=== PATIENT | female | born 1935 | race Caucasian/White ===

== ENCOUNTER 2018-05-02 17:49 | Emergency (ER) | payer OTHER, MEDICAID ==
[~2018-05-02] VITALS: Ht 152.4 cm; Wt 54.4 kg
[2018-05-02 17:57] VITALS: BP_SYST 155
--- NOTE | 2018-05-02 17:57 | NUR ---
Patient placed in bed 6 here for back pain while walking tonight, denies any fall or trauma, rates 06/01. Endorsed care to Mark RAMIREZ.
--- NOTE | 2018-05-02 18:00 | NUR ---
PATIENT BIB AMBULANCE. PATIENT SITTING UP ON BED. RESPIRATIONS EVEN AND UNLABORED. DENIES OF ANY CHEST PAIN. NO SOB. PT WITH C/O SHARP LOWER BACK PAIN AT 5PM WHILE WALKING. PAIN WAS 10/10 AT TIME OF INCIDENT, BUT NOW 1/10. TOLERABLE VERBALIZED. PT STATES, "I HAVE AN APPOINTMENT WITH MY DOCTOR TOMORROW." DENIES OF ANY RECENT TRAUMA OR INJURY. PT WITH Hx OF CHRONIC LOWER BACK PAIN. REST, RELAXATION, AND DEEP BREATHING ENCOURAGED. MD AWARE OF PT CONDITION. WILL CONTINUE TO MONITOR.
--- NOTE | 2018-05-02 18:25 | NUR ---
ER Dr. GUILLAUME at bedside examining patient.
--- NOTE | 2018-05-02 18:36 | NUR ---
Patient up and walking on own MD Bran made aware, condition stable.
[2018-05-02 18:45] VITALS: BP_SYST 161
--- NOTE | 2018-05-02 18:45 | NUR ---
Patient AND PT'S DAUGHTER given written and verbal discharge instructions and verbalizes understanding. ER MD discussed with patient the results and treatment provided. Patient in stable condition. ID arm band removed. NO Rx given. Patient educated on pain management and to follow up with PMD. Pain Scale 0/10. Opportunity for questions provided and answered. Medication side effect fact sheet provided. PATIENT IN GOOD CONDITION. NOTED WITH STEADY GAIT.
== END 2018-05-02 18:45 | disposition home or self-care (01) ==
LOC: SED 17:49
DX: G89.29 Other chronic pain (principal); M54.9 Dorsalgia, unspecified; R03.0 Elevated blood-pressure reading, without diagnosis of hypertension
CPT/HCPCS: 99283

== ENCOUNTER 2019-02-07 17:57 | Inpatient (IN) | payer OTHER, MEDICAID ==
[~2019-02-07] VITALS: Ht 152.4 cm; Wt 54.9 kg
[2019-02-07 18:00] VITALS: BP_SYST 187
[2019-02-07] MEDS ORDERED: traMADol HCL HCL 50 MG TABLET (ULTRAM) PO ONE (18:15)
[2019-02-07] MEDS ORDERED: INSULIN REGULAR, HUMAN 100 UNITS/ML, 10 ML VIAL (humuLIN R) SUBCUT PRN (19:45)
[2019-02-07 19:52] LABS: BASOPHILS # (AUTO) 0.1 K/uL (0.0-0.2); BASOPHILS % (AUTO) 0.6 % (0.0-2.0); EOSINOPHILS % (AUTO) 0.1 % (0.0-4.0); HEMATOCRIT 40.7 % (36-48); HEMOGLOBIN 13.9 g/dL (12.0-16.0); LYMPHOCYTES # (AUTO) 1.2 K/uL (1.0-5.5); LYMPHOCYTES % (AUTO) 13.3 % (20.5-51.5); MEAN CORPUSCULAR HEMOGLOBIN 30 pg (27-31); MEAN CORPUSCULAR HGB CONC 34 % (32-36); MEAN CORPUSCULAR VOLUME 87 fL (79.0-98.0); MONOCYTES # (AUTO) 0.3 K/uL (0.0-1.0); NEUTROPHILS # (AUTO) 7.2 K/uL (1.8-7.7); PLATELET COUNT (AUTO) 166 K/uL (130-430); RED BLOOD CELL COUNT(AUTO) 4.68 MIL/uL (4.2-6.2); RED CELL DISTRIBUTION WIDTH 13.4 % (9.0-15.0); WHITE BLOOD COUNT (AUTO) 8.7 K/uL (4.8-10.8)
[2019-02-07] MEDS ORDERED: GLUCOSE 15 GM GEL (in 37.5 GM TUBE) PO PRN (20:00)
[2019-02-07] MEDS ORDERED: D5W 1,000 ML IV PRN (20:00)
[2019-02-07] MEDS ORDERED: cloNIDine HCL 0.1 MG TABLET PO ONE (20:00)
[2019-02-07] MEDS ORDERED: DEXTROSE 50%-WATER 50 ML DISP.SYRIN IVP PRN (20:00)
[2019-02-07 20:05] LABS: ANION GAP 8 (5-15); CALCIUM 8.9 mg/dL (8.4-11.0); CHLORIDE 105 mmol/L (98-107); CREATININE 0.82 mg/dL (0.55-1.30); GLUCOSE 199 mg/dL (70-99); POTASSIUM 3.9 mmol/L (3.5-5.1); SODIUM SERUM 138 mmol/L (136-145); UREA NITROGEN, BLOOD 15 mg/dL (8-21)
[2019-02-07] MEDS ORDERED: cloNIDine HCL 0.1 MG TABLET ONE (20:06)
[2019-02-07 20:12] VITALS: BP_SYST 177
[2019-02-07 20:12] LABS: ALANINE AMINOTRANSFERASE 16 U/L (12-78); ALBUMIN 3.7 g/dL (3.4-4.8); ASPARTATE AMINOTRANSFERASE 26 U/L (10-37); TOTAL BILIRUBIN 0.2 mg/dL (0.0-1.0)
[2019-02-07] MEDS ORDERED: hydrALAZINE HCL 10 MG TABLET PO PRN (22:00)
[2019-02-08] VITALS: BP_SYST 118
[2019-02-08 01:10] LABS: BILIRUBIN,URINE NEGATIVE (NEGATIVE); BLOOD, URINE NEGATIVE (NEGATIVE); CLARITY/URINE HAZY (CLEAR); COLOR,URINE YELLOW (YELLOW); GLUCOSE,URINE 1+ (NEGATIVE); KETONES,URINE NEGATIVE (NEGATIVE); LEUKOCYTE ESTERASE ,URINE NEGATIVE (NEGATIVE); NITRITE, URINE NEGATIVE (NEGATIVE); PROTEIN URINE NEGATIVE (NEGATIVE); UROBILINOGEN,URINE 0.2 (0.2-1.0)
[2019-02-08 07:50] VITALS: BP_SYST 149
[2019-02-08] MEDS ORDERED: HYDROcodone/ACETAMIN 5-325 MG TAB (NORCO/ VICODIN) PO PRN (10:45)
[2019-02-08] MEDS ORDERED: ACETAMINOPHEN 325 MG TABLET PO PRN (10:45)
[2019-02-08 12:23] VITALS: BP_SYST 145
[2019-02-08 16:48] VITALS: BP_SYST 141
[2019-02-08] MEDS ORDERED: NORFLURANE/HFC 245FA 103.5 ML SPRAY TP ONE (18:30)
[2019-02-08 20:30] VITALS: BP_SYST 147
[2019-02-09 04:10] VITALS: BP_SYST 113
[2019-02-09 08:00] VITALS: BP_SYST 145
[2019-02-09 12:20] VITALS: BP_SYST 129
[2019-02-09 16:25] VITALS: BP_SYST 137
[2019-02-09 20:00] VITALS: BP_SYST 138
[2019-02-09] MEDS: INSULIN LISPRO SLIDING SCALE 100 UNITS/ML VIAL (humaLOG) SUBCUT PRN (20:41)
[2019-02-10 04:00] VITALS: BP_SYST 125
[2019-02-10] MEDS: INSULIN LISPRO SLIDING SCALE 100 UNITS/ML VIAL (humaLOG) SUBCUT PRN (05:46)
[2019-02-10 07:45] VITALS: BP_SYST 138
[2019-02-10 12:00] VITALS: BP_SYST 142
[2019-02-10 14:57] VITALS: BP_SYST 156
[2019-02-10 17:26] VITALS: BP_SYST 158
== END 2019-02-10 19:11 | DRG 554 ==
LOC: SED 17:57 → SMU 20:00
PROVIDERS: ADMIT Internal Medicine; ATTEND Internal Medicine
PROC: 0S9C3ZZ Drainage of Right Knee Joint, Percutaneous Approach (ICD-10-PCS; principal; 2019-02-08)
DX: M17.11 Unilateral primary osteoarthritis, right knee (principal); I10 Essential (primary) hypertension; G89.29 Other chronic pain; M54.9 Dorsalgia, unspecified; E11.65 Type 2 diabetes mellitus with hyperglycemia
CPT/HCPCS: 36415; 73564; 80053; 81003; 82962; 85025; 97116-GP; 97530-GP; 99285; J1815

== ENCOUNTER 2021-10-01 22:08 | Inpatient (IN) | payer OTHER, MEDICAID ==
[~2021-10-01] VITALS: Ht 157.5 cm; Wt 55.5 kg
[2021-10-01 22:08] VITALS: BP_SYST 134
--- NOTE | 2021-10-01 22:08 | NUR ---
Patient triaged and placed in waiting room. VSS and patient appears in no acute distress at this time. Accompanied by BLS , awaiting available bed, and MD notified of need for MSE.
--- NOTE | 2021-10-01 22:50 | NUR ---
Pt brought in by BLS ambulance from [facility]. Per facility staff, pt was SI. Pt was found with a bag strap around her neck and was hearing voices. Upon arrival, pt does not recall any SI, arrived to ED in a pleasant mood. Appears in no acute distress. No signs of self harm. No plan to hurt self. PMH of dementia.
[2021-10-01 23:10] LABS: BASOPHILS % (AUTO) 0.5 % (0.0-2.0); EOSINOPHILS # (AUTO) 0.1 K/uL (0.0-0.4); EOSINOPHILS % (AUTO) 2.5 % (0.0-4.0); HEMATOCRIT 40.1 % (36-48); HEMOGLOBIN 13.5 g/dL (12.0-16.0); LYMPHOCYTES # (AUTO) 2.1 K/uL (1.0-5.5); LYMPHOCYTES % (AUTO) 36.5 % (20.5-51.5); MEAN CORPUSCULAR HEMOGLOBIN 29 pg (27-31); MEAN CORPUSCULAR HGB CONC 34 % (32-36); MEAN CORPUSCULAR VOLUME 86 fL (79.0-98.0); MONOCYTES # (AUTO) 0.4 K/uL (0.0-1.0); MONOCYTES % (AUTO) 7.6 % (1.7-9.3); NEUTROPHILS % (AUTO) 52.9 % (40.0-70.0); PLATELET COUNT (AUTO) 161 K/uL (130-430); RED BLOOD CELL COUNT(AUTO) 4.67 MIL/uL (4.2-6.2); RED CELL DISTRIBUTION WIDTH 13.6 % (9.0-15.0); WHITE BLOOD COUNT (AUTO) 5.7 K/uL (4.8-10.8)
[2021-10-01 23:24] LABS: ANION GAP 10 (5-15); CALCIUM 8.9 mg/dL (8.4-11.0); CHLORIDE 105 mmol/L (98-107); CREATININE 0.84 mg/dL (0.55-1.30); GLUCOSE 155 mg/dL (70-99); POTASSIUM 3.8 mmol/L (3.5-5.1); SODIUM SERUM 142 mmol/L (136-145); UREA NITROGEN, BLOOD 16 mg/dL (8-21)
[2021-10-01 23:29] LABS: ALANINE AMINOTRANSFERASE 20 U/L (12-78); ALBUMIN 3.3 g/dL (3.4-4.8); ASPARTATE AMINOTRANSFERASE 18 U/L (10-37); TOTAL BILIRUBIN 0.3 mg/dL (0.0-1.0)
[2021-10-01 23:48] LABS: ALCOHOL, BLOOD < 3 mg/dL (<10)
[2021-10-01 23:50] LABS: ACETAMINOPHEN < 1 ug/mL (1-30)
--- NOTE | 2021-10-02 01:15 | NUR ---
Pt resting comfortably in bed. No signs of acute distress. No signs of SI.
--- NOTE | 2021-10-02 01:30 | NUR ---
Urine collected and sent to lab.
[2021-10-02 01:40] LABS: BILIRUBIN,URINE NEGATIVE (NEGATIVE); BLOOD, URINE NEGATIVE (NEGATIVE); CLARITY/URINE CLEAR (CLEAR); COLOR,URINE YELLOW (YELLOW); GLUCOSE,URINE NEGATIVE (NEGATIVE); KETONES,URINE NEGATIVE (NEGATIVE); LEUKOCYTE ESTERASE ,URINE 2+ (NEGATIVE); NITRITE, URINE POSITIVE (NEGATIVE); PH,URINE 5.5 (5.0-8.0); PROTEIN URINE NEGATIVE (NEGATIVE); UROBILINOGEN,URINE 0.2 (0.2-1.0)
[2021-10-02 01:56] LABS: BARBITURATE, URINE NEGATIVE (NEG <=200); BENZODIAZEPINE, URINE NEGATIVE (NEG <=150); CANNABINOID, URINE NEGATIVE (NEG <=50); COCAINE, URINE NEGATIVE (NEG <=150); METHAMPHETAMINES SCREEN,URINE NEGATIVE (NEG <=500); OPIATE, URINE NEGATIVE (NEG <=100); PHENCYCLIDINE SCREEN,URINE NEGATIVE (NEG <=25); UR TRICYCLIC ANTIDEPRESSANTS NEGATIVE (NEG <=300); URINE AMPHETAMINE NEGATIVE (NEG <=500); URINE METHADONE NEGATIVE (NEG <=200); URINE OXYCODONE SCREEN NEGATIVE (NEG <=100); URINE PROPOXYPHENE SCREEN NEGATIVE (NEG <=300)
[2021-10-02 01:58] LABS: BACTERIA,URINE MODERATE /HPF (None Seen); RBC,URINE 0-3 /HPF (0-3)
[2021-10-02] MEDS ORDERED: cefTRIAXone 1 GM in D5W 50 ML IV ONE (02:00)
--- NOTE | 2021-10-02 02:35 | NUR ---
ER Dr. Salgado at bedside examining patient.
[2021-10-02] MEDS ORDERED: cefTRIAXone 1 GM IVPB PREMIX 50 ML IV ONE (03:03)
--- NOTE | 2021-10-02 03:15 | NUR ---
# 20 gauge angiocath placed to L AC. Use of asceptic technique. Opsite placed over site. Blood return noted. Blood for lab drawn from site. Flushed with 10 cc of normal saline. No evidence of infiltration noted. Patient tolerated well.
--- NOTE | 2021-10-02 07:10 | NUR ---
RECEIVED PT FROM ASHLEY SMITH IN BED #1 FOR CC OF SUICIDAL IDEATION. PT CURRENTLY DENIES ANY S.I. IN NAD, VSS, AAOx3, AWAITING [facility].
[2021-10-02] MEDS ORDERED: SSREG SUBCUT (08:04)
[2021-10-02] MEDS ORDERED: SER25 PO (08:04)
[2021-10-02] MEDS ORDERED: MEMA5TAB PO (08:04)
[2021-10-02] MEDS ORDERED: LOSA50TA3 PO (08:04)
[2021-10-02] MEDS ORDERED: LACT1TAB14 PO (08:04)
--- NOTE | 2021-10-02 09:20 | NUR ---
[facility] BE [facility] OVER NIGHT FOR UTI TREATMENT. PT'S FACILITY NURSE MEGHA CALLED FROM [facility] STATING THE PATIENT HAS A ROOM AT [facility], RM # [id number]. PT AWAITING DISPOSITION TO THE FLOOR.
--- NOTE | 2021-10-02 09:30 | NUR ---
Admit bed requested Patient will be admitted to care of . Admitted to MED/SURG unit. Diagnosis SUICIDAL IDEATION AND URINARY TRACT INFECTION Inpatient (Yes or No) Y Observation (Yes or No) N Orientation concerns or request close to nursing station (Yes or No) Y Covid Status N On vent or bipap N Isolation requirements N Needs a sitter Y From Home (Yes or if No enter name of facility) [facility] Requires Dialysis (Yes or No) N Med Rec Completed (Yes of No) Y Addendum: 10/02/21 at 1012 [address] [id number] PEARSON
--- NOTE | 2021-10-02 13:36 | NUR ---
CONSULT: TIFFANY BAINS S.I., DR [phone] S/W: KIANNA
[2021-10-02] MEDS ORDERED: ACETAMINOPHEN 325 MG TABLET PO PRN (14:15)
[2021-10-02] MEDS ORDERED: CIPROFLOXACIN HCL 500 MG TABLET PO ONE (14:15)
[2021-10-02] MEDS ORDERED: INSULIN REGULAR, HUMAN 100 UNITS/ML, 10 ML VIAL (humuLIN R) SUBCUT PRN (14:15)
[2021-10-02] MEDS ORDERED: DEXTROSE 50% JECT 50 ML DISP.SYRIN IVP PRN (14:15)
--- NOTE | 2021-10-02 18:21 | NUR ---
DR. CARBAJAL AT THE BEDSIDE
--- NOTE | 2021-10-02 18:40 | NUR ---
PER DR. CARBAJAL PT DOES NOT NEED 1:1
--- NOTE | 2021-10-02 19:00 | NUR ---
RECD REPORT FROM KIN RAMIREZ FOR CONTINUITY OF CARE.
--- NOTE | 2021-10-02 20:00 | NUR ---
OFFERED DINNER BOX OF SANDWICH ATE WITH GOOD APPETITE.
--- NOTE | 2021-10-02 20:09 | NUR ---
Patient will be admitted to care of DR PEARSON Admitted to unit. Will go to room . Belongings list completed. Complete and up to date summary report printed. SBAR report to be given at bedside with opportunity for questions.
[2021-10-02] MEDS: QUEtiapine FUMARATE 25 MG TABLET PO SCH (20:26)
--- NOTE | 2021-10-02 20:34 | NUR ---
REPORT GIVEN TO EMMA RAMIREZ ON THE FLOOR FOR MS ADMIT. BROUGHT BY MARGRET SANDERSON VIA WHEEL CHAIR.
--- NOTE | 2021-10-02 20:35 | NUR ---
Patient will be admitted to care of DR PEARSON. Admitted to unit MS Will go to room 121-C. Belongings list completed. Complete and up to date summary report printed. SBAR report to be given at bedside with opportunity for questions.
[2021-10-02 21:00] VITALS: BP_SYST 136
[2021-10-02] MEDS ORDERED: LOSARTAN POTASSIUM 50 MG TABLET (COZAAR) PO SCH (21:00)
--- NOTE | 2021-10-02 21:30 | NUR ---
RECEIVED PT FROM ED, NO DISTRESS NOTED. PT DOES NOT WANT TO GET UP FROM W/C. AFTER MUCH COACHING SHE TRANSFERRED TO BED. SHE DOES NOT WANT TO REMOVE HER CLOTHING TO PUT A HOSPITAL GOWN ON, NOR HER SHOES. SHE IS NOT ANSWERING ANY OF THE ADMITTING QUESTIONS. 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
[2021-10-03 00:10] VITALS: BP_SYST 96
[2021-10-03] MEDS: MEMANTINE HCL 5 MG TABLET PO SCH ×3 (04:46→21:15)
[2021-10-03] MEDS: CIPROFLOXACIN HCL 500 MG TABLET PO SCH ×3 (04:46→22:31)
[2021-10-03] MEDS: LACTOBACILLUS RHAMNOSUS GG 1 CAP CAPSULE PO SCH ×3 (04:46→21:15)
[2021-10-03] MEDS ORDERED: MULTIVITAMINS TAB 1 TABLET PO SCH (09:00)
[2021-10-03] MEDS ORDERED: CYANOCOBALAMIN 1000 mCg TABLET PO ONE (09:15)
[2021-10-03] MEDS ORDERED: MULTIVITS,CA,MINERALS/IRON/FA 1 TABLET PO ONE (09:15)
[2021-10-03] MEDS ORDERED: cefTRIAXone 1 GM IVPB PREMIX 50 ML IV ONE (11:00)
[2021-10-03] MEDS: QUEtiapine FUMARATE 25 MG TABLET PO SCH (18:39)
[2021-10-04 00:09] VITALS: BP_SYST 112
--- NOTE | 2021-10-04 07:58 | NUR ---
Received patient in bed resting comfortably, AAOX2-3, presents calm and cooperative, able to express needs. No c/o mild pain or discomfort. Respiration are non- labored on room air. Skin is clean, warm and dry to touch. IV access is patent, dry and secure, no s/sx of redness nor swelling observed. Bed is locked in lowest position for safety, call light in reach. Nurse will continue care, monitor for changes in status.
[2021-10-04] MEDS: MEMANTINE HCL 5 MG TABLET PO SCH ×2 (09:43→22:22)
[2021-10-04] MEDS: CIPROFLOXACIN HCL 500 MG TABLET PO SCH ×2 (09:44→22:23)
[2021-10-04] MEDS: CYANOCOBALAMIN 1000 mCg TABLET PO SCH (09:44)
[2021-10-04] MEDS: MULTIVITS,CA,MINERALS/IRON/FA 1 TABLET PO SCH (09:44)
[2021-10-04] MEDS: LACTOBACILLUS RHAMNOSUS GG 1 CAP CAPSULE PO SCH ×2 (09:44→22:22)
[2021-10-04 12:00] VITALS: BP_SYST 116
--- NOTE | 2021-10-04 14:26 | NUR ---
MALA Called and spoke with Sana at [facility] and informed her of order to discharge pt back to [facility], I asked for help to facilitate order, she stated that case management can do it tomorrow. Dr. Fenton here and informed.
--- NOTE | 2021-10-04 16:06 | NUR ---
Patient in bed resting comfortably. No c/o pain or discomfort. Respiration are non- labored on room air. Skin is clean, warm and dry to touch. IV access is patent, dry and secure, no s/sx of redness nor swelling observed. Bed is locked in lowest position for safety, call light in reach. Nurse will continue care, monitor for changes in status.
[2021-10-04] MEDS: QUEtiapine FUMARATE 25 MG TABLET PO SCH (17:16)
[2021-10-04 18:19] VITALS: BP_SYST 120
--- NOTE | 2021-10-04 18:48 | NUR ---
Patient in bed resting comfortably. No c/o pain or discomfort. Respiration are non- labored on room air. Skin is clean, warm and dry to touch. IV access is patent, dry and secure, no s/sx of redness nor swelling observed. Bed is locked in lowest position for safety, call light in reach. Nurse will endorse patient to retail shift leader nurse for continue care.
[2021-10-04 20:42] VITALS: BP_SYST 127
[2021-10-04] MEDS ORDERED: LOSARTAN POTASSIUM 25 MG TABLET PO SCH (21:00)
[2021-10-05 00:20] VITALS: BP_SYST 110
[2021-10-05 08:34] VITALS: BP_SYST 125
[2021-10-05] MEDS: LACTOBACILLUS RHAMNOSUS GG 1 CAP CAPSULE PO SCH (09:23)
[2021-10-05] MEDS: CIPROFLOXACIN HCL 500 MG TABLET PO SCH (09:23)
[2021-10-05] MEDS: CYANOCOBALAMIN 1000 mCg TABLET PO SCH (09:24)
[2021-10-05] MEDS: MEMANTINE HCL 5 MG TABLET PO SCH (09:24)
[2021-10-05] MEDS: MULTIVITS,CA,MINERALS/IRON/FA 1 TABLET PO SCH (09:26)
--- NOTE | 2021-10-05 10:22 | NUR ---
Discharge Planning: DCP faxed pt referral to [facility] P#[phone] DCP to follow up Addendum: 10/05/21 at 1153 by Maryanne WEAVER patient packet being reviewed. Addendum: 10/05/21 at 1433 by Michell Austin RN Called & spoke with Sana at [facility] regarding bed assignment. States is waiting for [facility] to clear pt for acceptance back, then will call to give bed assignment. Discussed with Sana pt is on a bed hold & has a dc order. Addendum: 10/05/21 at 1559 by Maryanne WEAVER MALA arranged transport with [facility] [phone] 6:00pm to [facility] P#[phone] Rm 22A. DCP made charge nurse aware and patient packet taken to nurse station.
[2021-10-05 12:00] VITALS: BP_SYST 128
--- NOTE | 2021-10-05 15:29 | NUR ---
DISCHARGE PLANNING Order to dc to SNF, waiting for bed assignment from [facility]. Called & lt msg with dtr Virginia Burnett, ph [phone]. Called & spoke with mega Sanches, ph [phone], & updated plan for dc today just waiting for call from [facility] that bed ready. Agreeable with plan for discharge back to [facility]. States that was informed yest that plan was for pt to dc back today.
[2021-10-05 16:35] VITALS: BP_SYST 122
[2021-10-05 16:39] VITALS: BP_SYST 122
[2021-10-05] MEDS ORDERED: CYAN100010 PO (17:22)
[2021-10-05] MEDS ORDERED: MULT-1145 PO (17:22)
[2021-10-05] MEDS ORDERED: SER25 PO (17:22)
[2021-10-05] MEDS ORDERED: LOSA25TA3 PO (17:22)
[2021-10-05] MEDS ORDERED: LACT1CAP57 PO (17:22)
[2021-10-05] MEDS ORDERED: CEPH250C PO (17:23)
[2021-10-05] MEDS ORDERED: CEFTRIAXONE SOD 1 GM/ DEXTROSE,ISO 50 ML PREMIX IV ONE (17:30)
--- NOTE | 2021-10-05 18:01 | NUR ---
REPORT CALLED TO DARRICK Villa LVN WITH [facility]. CALL BACK NUMBER GIVEN. TRANSPORTATION HAS ARRIVED.
--- NOTE | 2021-10-05 18:38 | NUR ---
EMT ASSESSED BP 163/85. CALL [facility] .STAFF COMMUNICATED TO [facility] NEED TO BRING BLOOD PRESSURE DOWN PRIOR TO TRANSPORT. PT MEDICATED. WILL REASSESS BP.
[2021-10-05] MEDS: QUEtiapine FUMARATE 25 MG TABLET PO SCH (18:56)
--- NOTE | 2021-10-05 19:31 | NUR ---
BP REASSED. 141/73 MAP 116 HR 73. PT STABLE FOR TRANSPORT.
--- NOTE | 2021-10-05 19:39 | NUR ---
PT TRANSPORTED TO [facility]
== END 2021-10-05 19:38 | DRG 690 ==
LOC: SED 22:08 → SMU 10-02 09:27
PROVIDERS: ADMIT Internal Medicine; ATTEND Internal Medicine
DX: N39.0 Urinary tract infection, site not specified (principal); R45.851 Suicidal ideations; F03.91 Unspecified dementia, unspecified severity, with behavioral disturbance; F29 Unspecified psychosis not due to a substance or known physiological condition; F32.A Depression, unspecified; B96.20 Unspecified Escherichia coli [E. coli] as the cause of diseases classified elsewhere; Z20.822 Contact with and (suspected) exposure to COVID-19; E11.9 Type 2 diabetes mellitus without complications; I10 Essential (primary) hypertension; Z79.899 Other long term (current) drug therapy; Z88.8 Allergy status to other drugs, medicaments and biological substances
CPT/HCPCS: 36415; 80053; 80307; 81000; 82962; 85025; 87081; 87086; 93005; 96374; 99285; G0480; G0481; G0482; J0696; J1815; J7060

== ENCOUNTER 2021-10-21 15:08 | Emergency (ER) | payer OTHER, MEDICAID ==
[~2021-10-21] VITALS: Ht 152.4 cm; Wt 52.2 kg
[~2021-10-21 15:08] MED LIST: CEPH250C PO; CYAN100010 PO; LACT1CAP57 PO; LOSA25TA3 PO; MULT-1145 PO; SER25 PO
[2021-10-21 15:26] VITALS: BP_SYST 100
[2021-10-21 16:35] LABS: BASOPHILS % (AUTO) 0.6 % (0.0-2.0); EOSINOPHILS # (AUTO) 0.1 K/uL (0.0-0.4); EOSINOPHILS % (AUTO) 1.4 % (0.0-4.0); HEMATOCRIT 39.6 % (36-48); HEMOGLOBIN 13.4 g/dL (12.0-16.0); LYMPHOCYTES # (AUTO) 1.3 K/uL (1.0-5.5); LYMPHOCYTES % (AUTO) 23.7 % (20.5-51.5); MEAN CORPUSCULAR HEMOGLOBIN 29 pg (27-31); MEAN CORPUSCULAR HGB CONC 34 % (32-36); MEAN CORPUSCULAR VOLUME 85 fL (79.0-98.0); MONOCYTES # (AUTO) 0.2 K/uL (0.0-1.0); MONOCYTES % (AUTO) 4.4 % (1.7-9.3); NEUTROPHILS # (AUTO) 3.8 K/uL (1.8-7.7); NEUTROPHILS % (AUTO) 69.9 % (40.0-70.0); PLATELET COUNT (AUTO) 182 K/uL (130-430); RED BLOOD CELL COUNT(AUTO) 4.66 MIL/uL (4.2-6.2); RED CELL DISTRIBUTION WIDTH 13.4 % (9.0-15.0); WHITE BLOOD COUNT (AUTO) 5.5 K/uL (4.8-10.8)
[2021-10-21 16:42] LABS: ANION GAP 7 (5-15); CALCIUM 8.5 mg/dL (8.4-11.0); CHLORIDE 103 mmol/L (98-107); CREATININE 0.88 mg/dL (0.55-1.30); GLUCOSE 152 mg/dL (70-99); SODIUM SERUM 138 mmol/L (136-145); UREA NITROGEN, BLOOD 12 mg/dL (8-21)
[2021-10-21 16:59] LABS: ALANINE AMINOTRANSFERASE 18 U/L (12-78); ALBUMIN 3.1 g/dL (3.4-4.8); ASPARTATE AMINOTRANSFERASE 17 U/L (10-37); TOTAL BILIRUBIN 0.2 mg/dL (0.0-1.0)
[2021-10-21 18:48] VITALS: BP_SYST 129
== END 2021-10-21 18:46 | disposition home or self-care (01) ==
LOC: SED 15:08
DX: R55 Syncope and collapse (principal); E11.9 Type 2 diabetes mellitus without complications; I10 Essential (primary) hypertension; Z88.8 Allergy status to other drugs, medicaments and biological substances
CPT/HCPCS: 36415; 71045; 80053; 82550; 83605; 84484; 85025; 93005; 99285

== ENCOUNTER 2021-11-08 14:19 | Emergency (ER) | payer OTHER, MEDICAID ==
[~2021-11-08] VITALS: Ht 157.5 cm; Wt 59.0 kg
--- NOTE | 2021-11-08 14:19 | NUR ---
BROUGHT IN BY BLS AMBULANCE AM [facility] FROM [facility], PLACED IN BED #2 AND TRIAGED. REPORT GIVEN TO SHER
[2021-11-08 14:20] VITALS: BP_SYST 163
--- NOTE | 2021-11-08 15:01 | NUR ---
In ER bed 2 [facility] Has laceration R side of head LOC x 3 Cleaning to inspect
[2021-11-08 15:42] LABS: BILIRUBIN,URINE NEGATIVE (NEGATIVE); BLOOD, URINE NEGATIVE (NEGATIVE); COLOR,URINE YELLOW (YELLOW); GLUCOSE,URINE NEGATIVE (NEGATIVE); KETONES,URINE NEGATIVE (NEGATIVE); LEUKOCYTE ESTERASE ,URINE TRACE (NEGATIVE); NITRITE, URINE POSITIVE (NEGATIVE); PH,URINE 6.5 (5.0-8.0); PROTEIN URINE NEGATIVE (NEGATIVE); UROBILINOGEN,URINE 0.2 (0.2-1.0)
[2021-11-08 15:53] LABS: BASOPHILS % (AUTO) 0.7 % (0.0-2.0); EOSINOPHILS # (AUTO) 0.2 K/uL (0.0-0.4); EOSINOPHILS % (AUTO) 3.3 % (0.0-4.0); HEMATOCRIT 39.9 % (36-48); HEMOGLOBIN 13.6 g/dL (12.0-16.0); LYMPHOCYTES # (AUTO) 1.5 K/uL (1.0-5.5); MEAN CORPUSCULAR HEMOGLOBIN 29 pg (27-31); MEAN CORPUSCULAR HGB CONC 34 % (32-36); MEAN CORPUSCULAR VOLUME 86 fL (79.0-98.0); MONOCYTES # (AUTO) 0.3 K/uL (0.0-1.0); MONOCYTES % (AUTO) 6.2 % (1.7-9.3); NEUTROPHILS # (AUTO) 3.2 K/uL (1.8-7.7); NEUTROPHILS % (AUTO) 60.8 % (40.0-70.0); PLATELET COUNT (AUTO) 168 K/uL (130-430); RED BLOOD CELL COUNT(AUTO) 4.67 MIL/uL (4.2-6.2); RED CELL DISTRIBUTION WIDTH 13.6 % (9.0-15.0); WHITE BLOOD COUNT (AUTO) 5.2 K/uL (4.8-10.8)
[2021-11-08 15:55] LABS: ANION GAP 9 (5-15); CHLORIDE 106 mmol/L (98-107); CREATININE 0.84 mg/dL (0.55-1.30); GLUCOSE 157 mg/dL (70-99); POTASSIUM 4.2 mmol/L (3.5-5.1); SODIUM SERUM 139 mmol/L (136-145); UREA NITROGEN, BLOOD 15 mg/dL (8-21)
[2021-11-08 15:59] LABS: ALANINE AMINOTRANSFERASE 18 U/L (12-78); ALBUMIN 3.1 g/dL (3.4-4.8); ASPARTATE AMINOTRANSFERASE 20 U/L (10-37); TOTAL BILIRUBIN 0.1 mg/dL (0.0-1.0)
[2021-11-08 16:11] LABS: CLARITY/URINE HAZY (CLEAR)
[2021-11-08 16:34] LABS: ACETONE, SERUM NEGATIVE (NEGATIVE)
[2021-11-08 17:28] LABS: RBC,URINE 0-3 /HPF (0-3)
[2021-11-08 17:29] LABS: BACTERIA,URINE MANY /HPF (None Seen); MUCUS,URINE None Seen /LPF (None Seen)
[2021-11-08] MEDS ORDERED: CEPH-548 PO ×2 (17:45→17:47)
[2021-11-08] MEDS ORDERED: cefTRIAXone 1 GM VIAL IM ONE (17:45)
[2021-11-08 18:44] VITALS: BP_SYST 137
--- NOTE | 2021-11-08 18:47 | NUR ---
Patient given written and verbal discharge instructions and verbalizes understanding. ER MD discussed with patient the results and treatment provided. Patient in stable condition. ID arm band removed. Rx of Keflex given. Patient educated on pain management and to follow up with PMD. Pain Scale . Opportunity for questions provided and answered. Medication side effect fact sheet provided. [facility]. Daughter aware of plan Understanding verbalized. To exit
== END 2021-11-08 18:44 | disposition home or self-care (01) ==
LOC: SED 14:19
DX: N39.0 Urinary tract infection, site not specified (principal); M25.561 Pain in right knee; E11.9 Type 2 diabetes mellitus without complications; I10 Essential (primary) hypertension; R93.0 Abnormal findings on diagnostic imaging of skull and head, not elsewhere classified; Z79.899 Other long term (current) drug therapy
CPT/HCPCS: 36415; 70450; 71045; 73560; 76376; 80053; 81000; 82009; 82550; 83605; 85025; 87086; 93005; 96372; 99285; J0696